=== PATIENT | male | born 1975 | race Caucasian/White ===

== ENCOUNTER 2018-05-26 15:59 | Outpatient (RCR) | payer OTHER, SELFPAY ==
--- NOTE | 2018-05-26 16:56 | HP.PTEVAL_ITS ---
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 Date of Evaluation: 05/26/18 Physical Therapist: Awilda Tovar DPT - Visit Plan Frequency: 2x /Week Duration: 4 Weeks Plan: Ultrasound, manual, strength and neural flossing of radial nerve and innervated muscles - Subjective Findings: Patient reports that he works out regularly and was doing thrusters- right after he started getting a lot of soreness in the elbow. Initially felt like he hit his funny bone but got worse and is spreading between his biceps and now its down into the middle of the forearm. Always felt like nerve pain. Initial injury was about a month ago. A couple of weeks after lifted up something heavy and felt like a lightning bolt went through his arm. It got to the point where even picking up his cell phone hurt. Has stopped working out but is still doing things around the house. Does not feel like its getting b aarti but it is not worse. Decreased wall taper helper strength and is afraid to hurt it more. The pain is fairly constant- Agg: any kind of movement with the elbow bent, hammering, more gripping. Eases: cold freeze. Describes the pain as constant sharp pain. Maybe a little numbness. Right hand dominate. No problems with fine motor or dropping things. No shoulder or neck pain. No x- ray or MRI- no medication or injections. 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 Sleep: sometimes wakes him up when its fully extended or right up to his chest. No previous injury. PMHx: Varicous veins left LE Meds: none. - Objective Posture: good throughout. Gait: no deviation noted- good arm swing and trunk rotation. Palpation: tender along lateral epicondyle of the elbow, distal triceps, and into the brachioradialis. ROM: cervical: WNL, Shoulder: WNL, Elbow: WNL but pain at end range flexion and extension, Wrist: WNL, Finger Dexterity and Healthcare Facility Administrator: WNL. Strength: Shoulder: 5/5, Elbow: 5/5, Wrist: 5/5 Healthcare Facility Administrator: Left: 100 Right: 90- Supination: 4/5 with pain, Pronation: 4+/5 no pain. Special Test: Elbow bent for 30 sec increases s/s- Elbow Bent with tapping to radial nerve: increases s/s - Goals Goal 1:: Patient will be I with HEP and progression Goal Time Frame: 4-6 Weeks Goal 2:: Patient will demo equal wall taper helper strength Goal Time Frame: 4-6 Weeks Goal 3:: Patient will demo 4+/5 strength where deficit Goal Time Frame: 4-6 Weeks Goal 4:: Patient will report 0/10 pain for 1 week Goal Time Frame: 4-6 Weeks - Rehabilitation Potential Physical Therapy Diagnosis: Patient presents with hypomobility- he has decreased strength and increased pain with ADL's. Rehabilitation Potential: Fair - Anticipated Interventions Patient/Client Instruction: Educate patient on: Benefits of Fitness Program Therapeutic Exercise to Include: Strength training, Body mechanics, Flexibilty training, Neuromotor development For the Purpose of:: To improve ability to perform ADL's TENS: Yes Cryotherapy (ice pack, ice massage): Yes Thermo therapy (hot pack): Yes Ultrasound (thermal/non thermal): Yes For the Purpose of:: To decrease pain Thank you for the opportunity to evaluate your patient. For Medicare and Medicare HMO plans, please review the plan of care and approve it. It will need to be FAXED BACK to us at [phone] for Medicare purposes. For Medicare only, by signing this I certify the plan of care. Please let me know if there are questions or concerns regarding this plan of care. Physician Signature: Date:
--- NOTE | 2018-05-31 16:24 | HP.PT.NRP ---
HP - Discharge Summary (1) - Patient Information STAS PYLE was seen in my office for initial evaluation on 05/26/18. The following Plan of Care was established for this patient: Initial Frequency: 2x /Week Initial Duration: 4 Weeks - Anticipated Interventions Patient/Client Instruction: Educate patient on: Benefits of Fitness Program Therapeutic Exercise to Include: Strength training, Body mechanics, Flexibilty training, Neuromotor development For the Purpose of:: To improve ability to perform ADL's TENS: Yes Cryotherapy (ice pack, ice massage): Yes Thermo therapy (hot pack): Yes Ultrasound (thermal/non thermal): Yes For the Purpose of:: To decrease pain This patient was last seen in our office . Pertinent comments regarding their Physical therapy will appear below: Patient attended therapy for his initial evaluatio- he cancelled the remaining apts due to his insurance coverage. Appropriate for d/c at this time At this point I will be discontinuing this patient from physical therapy. I would be happy to see this patient again in the future if found appropriate by the physician. Thank you! ISABELLA VillaseñorT
== END 2018-05-26 19:00 | disposition home or self-care (01) ==
LOC: PT 15:59
PROVIDERS: Family Provider Family Medicine; PCP Family Medicine; Referring Provider Family Medicine; Visit Provider Family Medicine
DX: G58.8 Other specified mononeuropathies (principal)
CPT/HCPCS: 97035; 97161

== ENCOUNTER → 2021-11-08 | Outpatient (CLI) | payer OTHER, SELFPAY ==
--- NOTE | 2021-11-08 16:06 | RAD_ITS ---
EXAM: XR ABDOMEN, 2 VIEWS AND XR CHEST, 1 VIEW CLINICAL INDICATION: Back pain, rule out kidney stone TECHNIQUE: Frontal view of the chest, frontal view of the abdomen/pelvis and upright or decubitus view of the abdomen. This report was created using [employer] report generation technology. COMPARISON: None. FINDINGS: CHEST: LUNGS AND PLEURAL SPACES: Unremarkable. No consolidation or edema. No pneumothorax. No effusion. HEART: Unremarkable. Cardiac silhouette not enlarged. MEDIASTINUM: Central airways and mediastinal contour are unremarkable. ABDOMEN: INTRAPERITONEAL SPACE: No free air. GASTROINTESTINAL TRACT: Unremarkable. Non-obstructive. No bowel or stomach distention. ORGANS: Unremarkable as visualized. No organomegaly. No abnormal calcifications. TUBES, LINES AND DEVICES: None. BONES/JOINTS: No acute findings. SOFT TISSUES: No acute findings. RAD/Acute Abdomen Inc Chest IMPRESSION: Negative chest and abdominal series. Electronically Signed: Cory Krishnan MD at 17:06 EDT ,
== END | disposition home or self-care (01) ==
LOC: MTRAD 16:06
PROVIDERS: PCP Family Medicine; Referring Provider Family Medicine; Visit Provider Family Medicine
DX: M54.9 Dorsalgia, unspecified (principal)
CPT/HCPCS: 74022

== ENCOUNTER → 2022-02-06 | Outpatient (CLI) | payer OTHER, SELFPAY ==
--- NOTE | 2022-02-06 17:35 | CT_ITS ---
EXAM: CT ABDOMEN AND PELVIS WITHOUT INTRAVENOUS CONTRAST CLINICAL INDICATION: rule out renal stone TECHNIQUE: Helically acquired images were obtained of the abdomen and pelvis without intravenous contrast. CTDIvol = ( 8.07 ) mGy, DLP = ( 453.52 ) mGycm This CT exam was performed using one or more of the following dose reduction techniques: automated exposure control, adjustment of the mA and/or kV according to patient size, and/or use of iterative reconstruction technique. This report was created using [employer] report generation technology. COMPARISON: None. FINDINGS: LOWER THORAX: Unremarkable. Lung bases are clear. No cardiomegaly. No significant pericardial effusion. ABDOMEN: LIVER: Unremarkable. Homogeneous. GALLBLADDER AND BILE DUCTS: Unremarkable. No calcified gallstones. No gallbladder distention or wall edema. No intra- or extrahepatic biliary ductal dilation. PANCREAS: Unremarkable. No focal cystic mass. SPLEEN: Unremarkable. Normal size without focal cystic or solid mass. ADRENALS: Unremarkable. No nodules. KIDNEYS AND URETERS: Unremarkable. Normal renal size and position. No hydronephrosis. STOMACH AND BOWEL: Unremarkable. No stomach or bowel distention. No focal inflammatory change. PELVIS: APPENDIX: No evidence of acute appendicitis. BLADDER: Unremarkable. REPRODUCTIVE: Unremarkable as visualized. No mass. ABDOMEN and PELVIS: INTRAPERITONEAL SPACE: Unremarkable. No ascites or other fluid collection. No free air. BONES/JOINTS: Unremarkable. No suspicious lytic or blastic abnormality. SOFT TISSUES: Unremarkable. No discrete abdominal or pelvic wall hernia. VASCULATURE: Unremarkable. Abdominal aorta is non-dilated. LYMPH NODES: Unremarkable. No enlarged lymph nodes. CT/Abdomen/Pelvis without Cont IMPRESSION: Negative CT of the abdomen and pelvis without intravenous contrast. Electronically Signed: Rick Gonzalez MD at 18:[address] [facility] ,
== END | disposition home or self-care (01) ==
LOC: CT 17:32
PROVIDERS: PCP Family Medicine; Referring Provider Nurse Practitioner Family; Visit Provider Nurse Practitioner Family
DX: R10.9 Unspecified abdominal pain (principal)
CPT/HCPCS: 74176

== ENCOUNTER 2022-02-28 05:21 | Day surgery (SDC) | payer OTHER, SELFPAY ==
[2022-02-28] VITALS (13 sets, daily range): BP systolic 98–131; BP diastolic 67–92; PULSE 55–66; RESP 14–16; TEMP 36.2–36.3; O2SAT 96–100; BMI 27.4
[2022-02-28] MEDS: Lactated Ringers 1,000 ML 15 ML IV (06:06)
--- NOTE | 2022-02-28 06:12 | HP.PCM_ITS ---
[facility] - General General Date of Service: 02/28/22 Chief Complaint: Screening for intestinal cancer HPI Narrative STAS PYLE, is a 46 M who presents for screening colonoscopy today. He had one very remotely. There were no acute findings at that time. He has no family history of colon cancer or colon polyps. He has no complaints of abdominal pain or bright red blood per rectum or melena. He otherwise enjoys good health. [facility] Medical History Abdominal discomfort in right flank Alcohol use Non-smoker Varicose vein of leg Home Medications NK 01/24/22 [History Last Taken Unknown] Allergy/AdvReac Type Severity Reaction Status Date / Time No Known Allergies Allergy Verified 02/26/22 12:00 Family History (Updated 01/24/22 @ 09:31 by Marce Aleman) Father Diabetes Surgical History (Updated 02/26/22 @ 12:07 by Wendie Ames) History of colonoscopy History of eye surgery History of mandibular surgery History of tonsillectomy and adenoidectomy History of varicose vein ligation Social History Smoking Status: Never smoker ROS Constitutional Constitutional: Reports systems reviewed and no addt'l complaints, except as documented Cardiovascular Cardiovascular: Denies chest pain Respiratory/Chest Respiratory/Chest: Denies shortness of breath at rest Gastrointestinal Gastrointestinal: Denies abdominal pain, change in bowel habits, hematochezia or melena Vital Signs Vital Signs Vital Signs: 02/28/22 05:56 02/28/22 05:56 Temperature 97.2 F L Temperature Source Temporal Pulse Rate 66 Respiratory Rate 16 Respiratory Pattern Normal Blood Pressure 115/67 Blood Pressure Mean 83 Blood Pressure Source Monitor Blood Pressure Position Sitting Blood Pressure Location Right Arm Pulse Ox 97 Oxygen Delivery Method Room Air Weight Weight: 186 lb 1.122 oz Body Mass Index (BMI) 27.4 Physical Exam Const alert, oriented x3 and no apparent distress General Appearance: cooperative and comfortable Eyes General Eye: normal appearance of both eyes Neck General: normal visual inspection Chest inspection of chest normal Resp Effort and Inspection: able to speak in complete sentences and symmetric chest movement Auscultation: clear to auscultation bilaterally Cardio regular rate and regular rhythm GI soft to palpation, non-tender and non-distended Extremity no calf tenderness Neuro oriented x3 Psych thought process normal Assessment & Plan Assessment/Plan (1) Encounter for screening for malignant neoplasm of colon: PLAN: 46-year-old gentleman presents for screening colonoscopy today with possible biopsy or polypectomy as indicated. He is aware of the technique, benefit, risk, alternatives. He has had an opportunity to ask and have questions answered. We will proceed as noted. He presents via open access today. Joe Guerrero M.D., F.A.C.S.
--- NOTE | 2022-02-28 06:30 | COLBX_PTH ---
PATIENT: STAS PYLE LOC: EN U#:[id number] AGE/SX: 46/M ROOM: RE02/28/[address]: Dr. Joe Guerrero MD : 1975 BED: DIS: 02/28/2022 SPEC #: [id number] RECD: 02/28/22 10:53 STATUS: SYDNEE OLEG #: [id number] LORE: 02/28/22 06:[address]: Joe Guerrero DEPT: SURGICAL PATHOLOGY RECD BY: An Lew ENTERED: 02/28/22 11:53 SP TYPE: COLON BX OT DR: Smita [facility] Tissues: A - Transverse colon B - COLON BIOPSY C - COLON BIOPSY D - Descending colon E - Sigmoid colon biopsy F - Sigmoid colon biopsy G - Rectum, NOS Procedures: Surgery Specimen Level IV HEADER OPERATION: Colonoscopy ? open access (MOD) and polypectomy PRE-OP DIAGNOSIS: Screening TISSUE SUBMITTED: A - Polyp at mid transverse, B - Polyp at splenic flexure, C - Polyp #2 at splenic flexure, D - Descending colon polyp, E - Polyp at proximal sigmoid, F - Polyp at mid sigmoid, G - Polyp at rectum MICROSCOPIC DIAGNOSIS A. Polyp at mid transverse colon, polypectomy: Fragments of colonic mucosa, no pathologic diagnosis. B. Polyp at splenic flexure, polypectomy: Fragments of colonic mucosa with focal hyperplastic polyp changes. C. Polyp #2 at splenic flexure, polypectomy: A fragment of colonic mucosa, no pathologic diagnosis. D. Descending colon polyp, polypectomy: Fragments of hyperplastic polyp. E. Polyp at proximal sigmoid, polypectomy: Fragments of colonic mucosa, no pathologic diagnosis. F. Polyp at mid sigmoid, polypectomy: Hyperplastic polyp. G. Polyp at rectum, polypectomy: Hyperplastic polyp. SJ:jessica 03/03/2022 MICROSCOPIC DESCRIPTION Slides are reviewed. GROSS DESCRIPTION A - Received in fixative is one container labeled with the patient's name and designated polyp at mid transverse. The specimen consists of two irregular fragments of light palacios soft tissue that in aggregate measure 0.9 x 0.6 x 0.1 cm. The specimen is totally submitted in one cassette. B - Received in fixative is one container labeled with the patient's name and designated polyp at splenic flexure. The specimen consists of two irregular fragments of light palacios soft tissue that in aggregate measure 0.6 x 0.5 x 0.1 cm. The specimen is totally submitted in one cassette. C - Received in fixative is one container labeled with the patient's name and designated #2 splenic flexure polyp. The specimen consists of one irregular fragment of light palacios soft tissue that measures 0.6 x 0.3 x 0.1 cm. The specimen is totally submitted in one cassette. D - Received in fixative is one container labeled with the patient's name and designated descending colon polyp. The specimen consists of multiple irregular fragments of light palacios soft tissue that in aggregate measure 0.8 x 0.3 x 0.1 cm. The specimen is totally submitted in one cassette. E - Received in fixative is one container labeled with the patient's name and designated polyp at proximal sigmoid. The specimen consists of two irregular fragments of light palacios soft tissue that in aggregate measure 0.5 x 0.3 x 0.1 cm. The specimen is totally submitted in one cassette. F - Received in fixative is one container labeled with the patient's name and designated polyp at mid sigmoid. The specimen consists of one irregular fragment of light palacios soft tissue that measures 0.6 x 0.2 x 0.1 cm. The specimen is totally submitted in one cassette. G - Received in fixative is one container labeled with the patient's name and designated rectal polyp. The specimen consists of one irregular fragment of light palacios soft tissue that measures 0.6 x 0.5 x 0.1 cm. The specimen is totally submitted in one cassette. / AM:jessica 02/28/2022 TC:1 CPT: 09045 x7
--- NOTE | 2022-02-28 07:02 | OP.COLON_ITS ---
Patient Name: Phuc Marquez Procedure Date: 02/28/2022 6:09 AM Date of : 1975 Age: 46 Procedure: Colonoscopy Indications: Screening for colorectal malignant neoplasm Providers: Joe Guerrero MD Referring MD: Smita Fuller [facility] Medicines: Midazolam 4 mg IV, Meperidine 100 mg IV Patient Profile: Last Colonoscopy: more than 10 years ago. Complications: No immediate complications. Procedure: Pre-Anesthesia Assessment: - Prior to the procedure, a History and Physical was performed, and patient medications and allergies were reviewed. The patient's tolerance of previous anesthesia was also reviewed. The risks and benefits of the procedure and the sedation options and risks were discussed with the patient. All questions were answered, and informed consent was obtained. Prior Anticoagulants: The patient has taken no previous anticoagulant or antiplatelet agents. ASA Grade Assessment: I - A normal, healthy patient. After reviewing the risks and benefits, the patient was deemed in satisfactory condition to undergo the procedure. After I obtained informed consent, the scope was passed under direct vision. Throughout the procedure, the patient's blood pressure, pulse, and oxygen saturations were monitored continuously. The Colonoscope was introduced through the anus and advanced to the cecum, identified by appendiceal orifice and ileocecal valve. The colonoscopy was performed without difficulty. The patient tolerated the procedure well. The quality of the bowel preparation was good. The ileocecal valve and the appendiceal orifice were photographed. Moderate Sedation: Moderate (conscious) sedation was personally administered by the endoscopist. The following parameters were monitored: oxygen saturation, heart rate, blood pressure, and response to care. Total physician intraservice time was 15 minutes. Scope In: 6:30:26 AM Scope Withdrawal Time 0 hours 20 minutes 9 seconds Scope Out: 6:54:30 AM Total Procedure Duration Time 0 hours 24 minutes 4 seconds Findings: The digital rectal exam findings include enlarged prostate. A 4 mm polyp was found in the mid transverse colon. The polyp was sessile. The polyp was removed with a cold biopsy forceps. Resection and retrieval were complete. A 4 mm polyp was found in the splenic flexure. The polyp was sessile. The polyp was removed with a cold biopsy forceps. Resection and retrieval were complete. A 6 mm polyp was found in the splenic flexure. The polyp was sessile. The polyp was removed with a cold biopsy forceps. Resection and retrieval were complete. A 4 mm polyp was found in the proximal descending colon. The polyp was sessile. The polyp was removed with a cold biopsy forceps. Resection and retrieval were complete. A 4 mm polyp was found in the proximal sigmoid colon. The polyp was sessile. The polyp was removed with a cold biopsy forceps. Resection and retrieval were complete. A 4 mm polyp was found in the mid sigmoid colon. The polyp was sessile. The polyp was removed with a cold biopsy forceps. Resection and retrieval were complete. A 3 mm polyp was found in the rectum. The polyp was sessile. The polyp was removed with a cold biopsy forceps. Resection and retrieval were complete. Impression: - Enlarged prostate found on digital rectal exam. - One 4 mm polyp in the mid transverse colon, removed with a cold biopsy forceps. Resected and retrieved. - One 4 mm polyp at the splenic flexure, removed with a cold biopsy forceps. Resected and retrieved. - One 6 mm polyp at the splenic flexure, removed with a cold biopsy forceps. Resected and retrieved. - One 4 mm polyp in the proximal descending colon, removed with a cold biopsy forceps. Resected and retrieved. - One 4 mm polyp in the proximal sigmoid colon, removed with a cold biopsy forceps. Resected and retrieved. - One 4 mm polyp in the mid sigmoid colon, removed with a cold biopsy forceps. Resected and retrieved. - One 3 mm polyp in the rectum, removed with a cold biopsy forceps. Resected and retrieved. Recommendation: - Repeat colonoscopy in 1 year for surveillance based on pathology results. - Telephone my office for pathology results in 1 week. - Continue present medications. Procedure Code(s): --- Professional --- 53670, Colonoscopy, flexible; with biopsy, single or multiple 98379, 59, Moderate sedation services provided by the same physician or other qualified health manager of care performing the diagnostic or therapeutic service that the sedation supports, requiring the presence of an independent trained observer to assist in the monitoring of the patient's level of consciousness and physiological status; initial 15 minutes of intraservice time, patient age 5 years or older Diagnosis Code(s): --- Professional --- Z12.11, Encounter for screening for malignant neoplasm of colon D12.3, Benign neoplasm of transverse colon (hepatic flexure or splenic flexure) D12.4, Benign neoplasm of descending colon D12.5, Benign neoplasm of sigmoid colon K62.1, Rectal polyp N40.0, Benign prostatic hyperplasia without lower urinary tract symptoms CPT copyright 2017 [employer]. All rights reserved. The codes documented in this report are preliminary and upon disability advocate review may be revised to meet current compliance requirements. Joe Guerrero MD 02/28/2022 7:01:22 AM This report has been signed electronically. Number of Addenda: 0 Note Initiated On: 02/28/2022 6:09 AM
--- NOTE | 2022-02-28 07:02 | OP.CCLET_ITS ---
02/28/2022 Smita Fuller [facility] Re : Colonoscopy procedure for Phuc Marquez [facility] This procedure was performed on Monday, February 28, 2022. My impressions and recommendations are as follows: Impressions : - Enlarged prostate found on digital rectal exam. - One 4 mm polyp in the mid transverse colon, removed with a cold biopsy forceps. Resected and retrieved. - One 4 mm polyp at the splenic flexure, removed with a cold biopsy forceps. Resected and retrieved. - One 6 mm polyp at the splenic flexure, removed with a cold biopsy forceps. Resected and retrieved. - One 4 mm polyp in the proximal descending colon, removed with a cold biopsy forceps. Resected and retrieved. - One 4 mm polyp in the proximal sigmoid colon, removed with a cold biopsy forceps. Resected and retrieved. - One 4 mm polyp in the mid sigmoid colon, removed with a cold biopsy forceps. Resected and retrieved. - One 3 mm polyp in the rectum, removed with a cold biopsy forceps. Resected and retrieved. Recommendations : - Repeat colonoscopy in 1 year for surveillance based on pathology results. - Telephone my office for pathology results in 1 week. - Continue present medications. My findings are described in the full procedure note, which is enclosed. If I can be of further assistance, please feel free to contact me at Doctor phone number(s): Work: . Sincerely, Joe Guerrero MD 02/28/2022 7:01:22 AM This report has been signed electronically.
== END 2022-02-28 07:51 | disposition home or self-care (01) ==
LOC: EN 05:21 → AC 05:23
PROVIDERS: Visit Provider Surgery
PROC: 0DJD8ZZ Inspection of Lower Intestinal Tract, Via Natural or Artificial Opening Endoscopic (ICD-10-PCS; CPT 45378; principal; 2022-02-28 06:25)
DX: Z12.11 Encounter for screening for malignant neoplasm of colon (principal); K62.1 Rectal polyp; N40.0 Benign prostatic hyperplasia without lower urinary tract symptoms; Z90.49 Acquired absence of other specified parts of digestive tract; D12.3 Benign neoplasm of transverse colon; D12.4 Benign neoplasm of descending colon; D12.5 Benign neoplasm of sigmoid colon
CPT/HCPCS: 45380; 88305; 99152; 99153; J7120

== ENCOUNTER → 2022-06-04 | Outpatient (CLI) | payer BC, SELFPAY ==
--- NOTE | 2022-06-04 17:08 | RAD_ITS ---
STUDY: X-RAY - RIGHT SHOULDER REASON FOR EXAM: Male, 46 years old. Shoulder pain. TECHNIQUE: 4 view(s) of the shoulder. COMPARISON: None. FINDINGS: Normal glenohumeral articulation. Normal acromioclavicular joint. Normal acromion. Normal humeral head and visualized proximal humerus. Right calcific tendinosis. Normal visualized pulmonary apex. RAD/Shoulder min 2 Views IMPRESSION: Right calcific tendinosis. No other abnormality. Electronically Signed: Miko Haley, at 12:54 EDT ,
== END | disposition home or self-care (01) ==
LOC: MTRAD 17:07
PROVIDERS: PCP Family Medicine; Referring Provider Family Medicine; Visit Provider Family Medicine
DX: M25.511 Pain in right shoulder (principal)
CPT/HCPCS: 73030

== ENCOUNTER 2023-12-31 10:54 | Emergency (ER) | payer BC, SELFPAY ==
[2023-12-31 10:54] VITALS: BP 137/102; PULSE 64; RESP 16; TEMP 35.8; O2SAT 96; BMI 28.5
--- NOTE | 2023-12-31 11:16 | VDLE_ITS ---
Reason For Study: Left leg pain Procedure LEFT This is a venous duplex using B-mode, color CFV is compressible, spontaneous, phasic, flow and spectral Doppler. competent, and demonstrates normal Exam performed portable in ED. augmentation. A preliminary report was called and/or faxed FV is compressible, spontaneous, phasic, to Dr. Stein. competent and demonstrates normal augmentation. POP V is compressible, spontaneous, phasic, competent and demonstrates normal augmentation. T/P Trunk is compressible. PTV is compressible. LT PerV is compressible. GSV is absent s/p EVLA. Thrombus filled varicose veins noted at the lateral knee. VL/Venous Duplex US, Unilateral Interpretation Summary Acute superficial vein thrombosis is noted in the left lateral leg varicose vei ns. Ordering Physician: Chris Stein Referring Physician: Gerald Veloz MD Performed By: Racquel Steve RVT
--- NOTE | 2023-12-31 11:35 | EX.ED.DYSGE1 ---
HPI History of Present Illness Chief Complaint: Lower Extremity Injury Narrative Narrative: Patient is a 48-year-old male with a past medical history of varicose veins with extensive surgery noted on his left leg for this who presents to the emergency department chief complaint of left leg pain and concern for a blood clot. Patient states in the past he has had a superficial blood clot in that leg up near his lower thigh/knee region where his current pain is. He states that he recently was on vacation and did a significant driving. Patient denies any other injuries or trauma to the area. [facility] Medical History Alcohol use Non-smoker Varicose vein of leg Abdominal discomfort in right flank Home Medications ?Medication ?Instructions ?Recorded ?Last Taken ?Type apixaban 5 mg (74 tabs) tablets in See Rx Instructions PO .COMPLEX 12/31/23 Unknown Rx a dose pack (Eliquis DVT-PE Treat #74 tabs 30D Start) Allergy/AdvReac Type Severity Reaction Status Date / Time No Known Allergies Allergy Verified 12/31/23 10:57 Family History Father Diabetes Surgical History History of tonsillectomy and adenoidectomy History of mandibular surgery History of varicose vein ligation History of eye surgery History of colonoscopy Social History Smoking Status: Never smoker ROS ROS ED ROS Narrative Constitutional: Denies any fevers, chills, headaches Cardiovascular: Denies chest pain Respiratory: Denies shortness of breath Neurological: Denies numbness, weakness, tingling Musculoskeletal: Complains of left thigh/leg pain Skin: Denies rashes or lesions EXAM Physical Exam Narrative Exam Narrative: General: Patient was sitting in chair at bedside did not appear to be acute distress Head: Atraumatic, normocephalic Eyes: PERRL bilaterally, EOMI bilaterally Neck: Soft, supple and trachea midline Cardiovascular: Regular rate rhythm Respiratory: Clear to auscultation bilaterally Extremities: +5/5 strength noted in the bilateral lower extremities, DP pulses +2/4 in the bilateral lower extremities Neurological: Patient follow commands knew that he was at [facility] years is 2023 Skin: warm, dry, intact Const Vital Signs: 12/31/23 10:54 Temperature 96.5 F L Temperature Source Temporal Pulse Rate 64 Respiratory Rate 16 Blood Pressure 137/102 H Blood Pressure Mean 113 Pulse Ox 96 Oxygen Delivery Method Room Air MDM MDM MDM Narrative Medical decision making narrative: Patient is a 48-year-old male who presented to the emergency department with concern for a DVT/superficial venous thrombosis. Patient will have a ultrasound performed here on the differential diagnose includes but not limited to superficial venous thrombosis, DVT. Once workup obtained and reviewed he will be reevaluated. Ultrasound was performed and he is positive for superficial venous thrombosis. Discussed case with Dr. Rojas who is recommending placing patient on Eliquis since there is multiple filled varicose veins at the lateral knee and have the following up in his office within the month. I discussed this with the patient. Advised him to be evaluated in the emergency department if he falls and hits his head while on anticoagulation and try to avoid high risk activity.. He can follow-up with his primary care physician outpatient setting. He was encouraged to return with worsening symptoms or other concerns. Patient would like to go home at this point time all question concerns answered he is discharged home in stable condition. Discharge Plan Triage Chief Complaint: Lower Extremity Injury ED Provider: Chris Stein Dx/Rx/DC Orders Clinical Impression: Acute superficial venous thrombosis of lower extremity Prescriptions: New Eliquis DVT-PE Treat 30D Start 5 mg (74 tabs) tablets,dose pack See Rx Instructions .ROUTE .COMPLEX Qty: 74 0RF Rx Instructions: orally per package directions Primary Care Provider: Gerald Veloz Referrals: Gerald Veloz MD [Primary Care Provider] - Michael Rojas MD [Med Staff - Active Staff] - Activity Restrictions/Additional Instructions: Follow-up with Dr. Rojas in the outpatient setting as discussed here follow-up your primary care physician. Take Eliquis as prescribed. If falling and hitting head while on Eliquis be evaluated in the emergency department. Avoid high risk activities. Return with worsening symptoms or other concerns. Do not use NSAIDs while on this medication use Tylenol for pain control Print Language: American Disposition Disposition: Home, Self Care
[2023-12-31 12:47] VITALS: BP 135/99; PULSE 71; RESP 14; TEMP 36.6; O2SAT 98
== END 2023-12-31 12:47 | disposition home or self-care (01) ==
PROVIDERS: Emergency Provider Emergency Medicine; PCP Family Medicine; Visit Provider Emergency Medicine
DX: I82.812 Embolism and thrombosis of superficial veins of left lower extremity (principal); I83.92 Asymptomatic varicose veins of left lower extremity
CPT/HCPCS: 93971; 99282